=== PATIENT | female | born 1990 | race Caucasian/White ===

== ENCOUNTER 2017-01-24 12:44 | Inpatient (IN) | payer MEDICARE ==
[~2017-01-24] VITALS: Ht 162.6 cm; Wt 84.5 kg
[~2017-01-24 12:44] MED LIST: ANAPROX DS550 MG PO; ATIVAN1 MG PO; AUGMENTIN 875 M1 TAB PO; BACTRIM DS 8001 TA1 PO; CARAFATE1 G1 PO; CITALOPRAM20 MG PO; COMPAZINE10 MG PO; MEDROL DOSEPAK4 MG PO; MOTRIN800 MG PO; NO DAILY MEDS; PRILOSEC20 MG PO; RONDEC DM 480480 ML PO; SUNMARK OMEPRAZ20 M1 PO; TRAMADOL HCL50 MG PO; ULTRAM50 MG PO; VICODIN 500 MG-1 TAB PO; ZANTAC 150150 MG PO; ZOFRAN ODT4 MG SL; ZOFRAN4 MG PO; Zofran4 MG PO
[2017-01-24 12:55] VITALS: BP 139/90
[2017-01-24] MEDS ORDERED: HYDROXYZINE PAM25 M1 PO (12:56)
[2017-01-24] MEDS ORDERED: VENLAFAXINE HYD75 M3 PO (12:56)
[2017-01-24 13:29] LABS: HEMATOCRIT 45.9 % (37.0-47.0); HEMOGLOBIN 15.6 g/dl (12.0-16.0); MEAN CORPUSCULAR HGB 31.3 pg (27.0-31.0); MEAN PLATELET VOLUME 8.9 fl (9.6-12.3); PLATELET COUNT AUTOMATED 355 10*3/uL (130-400); RED BLOOD COUNT 4.99 10*6/uL (4.10-5.10); RED CELL DISTRI WIDTH 12.9 % (0-14.5); WHITE BLOOD COUNT 31.1 10*3/uL (4.8-10.8)
[2017-01-24 13:44] LABS: ALBUMIN 4.1 gm/dl (3.1-4.5); ALKALINE PHOSPHATASE 96 U/L (45-117); BILIRUBIN, TOTAL 0.2 mg/dl (0.2-1.0); BUN 11 mg/dl (7-24); CARBON DIOXIDE 24 mmol/L (21-32); CHLORIDE 111 mmol/L (98-107); EST GLOM FILT AFRICAN AMERICAN > 60 ml/min; GLUCOSE 138 mg/dL (65-99); POTASSIUM 3.7 mmol/L (3.5-5.1); SGOT/AST 20 IU/L (3-35); SGPT/ALT 21 U/L (12-78); SODIUM 144 mmol/L (136-145); TOTAL PROTEIN 7.7 gm/dL (6.4-8.2)
[2017-01-24 13:46] LABS: LYMPHOCYTE # 1.9 10*3/uL (1.3-4.4); MONOCYTE # 1.2 10*3/uL (0.1-1.0); NEUTROPHILS 90 % (47-73); TOTAL CELLS COUNTED 100 #CELLS
[2017-01-24 13:47] LABS: PLATELET SUFFICIENCY NORMAL (NORMAL)
[2017-01-24 14:18] VITALS: BP 118/73
[2017-01-24 15:10] LABS: BILIRUBIN NEGATIVE (NEGATIVE); BLOOD NEGATIVE (NEGATIVE); CLARITY CLEAR (CLEAR); COLOR YELLOW (YELLOW); GLUCOSE NEGATIVE (NEGATIVE); KETONE TRACE (NEGATIVE); LEUKO ESTERASE NEGATIVE (NEGATIVE); NITRITE NEGATIVE (NEGATIVE); PH 8.5 (5.0-9.0); PROTEIN 1+ (NEGATIVE); UROBILINOGEN 0.2 E.U./dl (0.2-1.0)
[2017-01-24 15:17] LABS: BACTERIA TRACE; URINE REFLEX COMMENT NO (NO); WBC 0-2 wbc/hpf (0-5)
[2017-01-24 15:19] LABS: URINE AMPHETAMINES < 1000 (1000ng/ml); URINE BARBITURATES < 200 (200ng/ml); URINE COCAINE < 300 (300ng/ml)
[2017-01-24 16:21] LABS: LA>2 REFLEX 2 HR DRAW NOW
[2017-01-24 16:36] LABS: LA>2 RFLX FOLLOW UP AT 2 HRS 2.7 mmol/L (0.4-2.0)
[2017-01-24 16:45] VITALS: BP 147/76
[2017-01-24 18:31] LABS: LA>2 REFLEX 4 HR DRAW NOW
[2017-01-24 20:00] VITALS: BP 125/84
[2017-01-25] VITALS: BP 141/80; BP 153/79
[2017-01-25 06:12] LABS: BASO % 0.1 % (0.0-1.0); IG # 0.1 10*3/uL (0.0-0.1); LYMPH # 2.9 10*3/uL (1.3-4.4); LYMPH % 13.7 % (27.0-41.0); MEAN CELL VOLUME 92.5 fl (81.0-99.0); MEAN CORPUSCULAR HGB 31.3 pg (27.0-31.0); MEAN CORPUSCULAR HGB CONC 33.8 g/dl (33.0-37.0); MEAN PLATELET VOLUME 9.3 fl (9.6-12.3); MONO % 4.8 % (3.0-9.0); NEUT # 17.3 10*3/uL (2.3-7.9); NEUT % 80.9 % (47.0-73.0); PLATELET COUNT AUTOMATED 307 10*3/uL (130-400); RED BLOOD COUNT 4.28 10*6/uL (4.10-5.10); RED CELL DISTRI WIDTH 13.2 % (0-14.5); WHITE BLOOD COUNT 21.4 10*3/uL (4.8-10.8)
[2017-01-25 06:14] LABS: HEMATOCRIT 39.6 % (37.0-47.0); HEMOGLOBIN 13.4 g/dl (12.0-16.0)
[2017-01-25 06:27] LABS: HEMOGLOBIN A1c 5.3 % (4.8-5.6)
[2017-01-25 06:40] LABS: BUN 7 mg/dl (7-24); CARBON DIOXIDE 24 mmol/L (21-32); CHLORIDE 109 mmol/L (98-107); CHOLESTEROL 98 mg/dL (<200); EST GLOM FILT AFRICAN AMERICAN > 60 ml/min; FREE T4 0.94 ng/dl (0.76-1.46); GLUCOSE 104 mg/dL (65-99); HDL CHOLESTEROL 60 mg/dl (40-60); LDL CHOLESTEROL 26 mg/dL (9-159); MAGNESIUM 1.7 mg/dL (1.5-2.1); PHOSPHOROUS 2.3 mg/dL (2.5-4.9); POTASSIUM 3.3 mmol/L (3.5-5.1); SODIUM 141 mmol/L (136-145); TRIGLYCERIDES 58 mg/dl (<150); VLDL CHOLESTEROL 12 mg/dL (6-40)
[2017-01-25 06:47] LABS: THYROID STIM HORMONE (HS) 0.858 uIU/ml (0.358-4.75)
[2017-01-25 06:52] LABS: FOLIC ACID 15.7 ng/mL (>5.38); VITAMIN D, 25-HYDROXY 34.7 ng/mL (30-100)
[2017-01-25 08:00] VITALS: BP 126/61
== END 2017-01-25 14:15 | disposition home or self-care (01) | DRG 391 ==
LOC: ED 12:44 → EDHOLD 15:51 → 5E 15:51
PROVIDERS: Internal Medicine; Nurse Practitioner Family
DX: K29.20 Alcoholic gastritis without bleeding (principal); R65.11 Systemic inflammatory response syndrome (SIRS) of non-infectious origin with acute organ dysfunction; F32.9 Major depressive disorder, single episode, unspecified; F17.200 Nicotine dependence, unspecified, uncomplicated; F41.9 Anxiety disorder, unspecified; F12.90 Cannabis use, unspecified, uncomplicated; Z71.6 Tobacco abuse counseling; Z82.69 Family history of other diseases of the musculoskeletal system and connective tissue; Z83.49 Family history of other endocrine, nutritional and metabolic diseases; Z79.899 Other long term (current) drug therapy

== ENCOUNTER 2017-04-12 13:25 | Emergency (ER) | payer MEDICARE ==
[~2017-04-12] VITALS: Wt 68.0 kg
[~2017-04-12 13:25] MED LIST changes: +HYDROXYZINE PAM25 M1 PO; +VENLAFAXINE HYD75 M3 PO
[2017-04-12 14:09] LABS: BASO % 0.2 % (0.0-1.0); EOS % 0.1 % (1.0-4.0); HEMATOCRIT 44.5 % (37.0-47.0); HEMOGLOBIN 15.3 g/dl (12.0-16.0); LYMPH # 2.2 10*3/uL (1.3-4.4); LYMPH % 14.8 % (27.0-41.0); MEAN CELL VOLUME 90.8 fl (81.0-99.0); MEAN CORPUSCULAR HGB 31.2 pg (27.0-31.0); MEAN CORPUSCULAR HGB CONC 34.4 g/dl (33.0-37.0); MEAN PLATELET VOLUME 8.5 fl (9.6-12.3); MONO # 0.3 10*3/uL (0.1-1.0); MONO % 2.2 % (3.0-9.0); NEUT # 12.2 10*3/uL (2.3-7.9); NEUT % 82.4 % (47.0-73.0); PLATELET COUNT AUTOMATED 358 10*3/uL (130-400); RED CELL DISTRI WIDTH 12.8 % (0-14.5); WHITE BLOOD COUNT 14.8 10*3/uL (4.8-10.8)
[2017-04-12 14:17] LABS: ACT PARTIAL THROMBO TIME 21.1 SECONDS (20.8-31.5)
[2017-04-12 14:25] LABS: ALBUMIN 3.9 gm/dl (3.1-4.5); ALKALINE PHOSPHATASE 87 U/L (45-117); BUN 8 mg/dl (7-24); CHLORIDE 110 mmol/L (98-107); LIPASE 115 U/L (73-393); MAGNESIUM 2.2 mg/dL (1.5-2.1); POTASSIUM 3.8 mmol/L (3.5-5.1); SGOT/AST 16 IU/L (3-35); SGPT/ALT 18 U/L (12-78); SODIUM 139 mmol/L (136-145); TOTAL PROTEIN 7.6 gm/dL (6.4-8.2)
[2017-04-12 15:38] VITALS: BP 125/85
[2017-04-12 15:46] LABS: BILIRUBIN NEGATIVE (NEGATIVE); BLOOD 3+ (NEGATIVE); CLARITY SL CLOUDY (CLEAR); COLOR YELLOW (YELLOW); GLUCOSE NEGATIVE (NEGATIVE); KETONE 3+ (NEGATIVE); LEUKO ESTERASE NEGATIVE (NEGATIVE); NITRITE NEGATIVE (NEGATIVE); UROBILINOGEN 0.2 E.U./dl (0.2-1.0)
[2017-04-12 15:53] LABS: BACTERIA 1+; URINE AMPHETAMINES < 1000 (1000ng/ml); URINE BARBITURATES < 200 (200ng/ml); URINE BENZODIAZEPINES < 200 (200ng/ml); URINE CANNABINOIDS (THC) > 50 (50ng/ml); URINE COCAINE < 300 (300ng/ml); URINE METHADONE < 300 (300ng/ml); URINE OPIATES < 300 (300ng/ml)
[2017-04-12 15:55] LABS: RBC 16-20 rbc/hpf (0-2); WBC 0-2 wbc/hpf (0-5)
[2017-04-12 16:01] LABS: URINE PHENCYCLIDINE < 25 (25ng/ml)
[2017-04-12] MEDS ORDERED: Motrin,Rufen800 MG PO (16:42)
[2017-04-12] MEDS ORDERED: ZOFRAN ODT4 MG SL (16:42)
== END 2017-04-12 18:40 | disposition home or self-care (01) ==
LOC: ED 13:25
PROVIDERS: Emergency Medicine
DX: R11.2 Nausea with vomiting, unspecified (principal); R51 Headache; F17.200 Nicotine dependence, unspecified, uncomplicated; F12.10 Cannabis abuse, uncomplicated; Z79.899 Other long term (current) drug therapy

== ENCOUNTER 2017-06-23 09:49 | Inpatient (IN) | payer MEDICARE ==
[~2017-06-23] VITALS: Ht 165.1 cm; Wt 79.9 kg
[~2017-06-23 09:49] MED LIST changes: +Motrin,Rufen800 MG PO
[2017-06-23 09:56] VITALS: BP 134/80
[2017-06-23 10:17] LABS: BILIRUBIN NEGATIVE (NEGATIVE); BLOOD NEGATIVE (NEGATIVE); CLARITY SL CLOUDY (CLEAR); COLOR YELLOW (YELLOW); GLUCOSE NEGATIVE (NEGATIVE); KETONE 1+ (NEGATIVE); LEUKO ESTERASE NEGATIVE (NEGATIVE); NITRITE NEGATIVE (NEGATIVE); SPECIFIC GRAVITY 1.015 (1.005-1.030); UROBILINOGEN 0.2 E.U./dl (0.2-1.0)
[2017-06-23 10:20] LABS: BASO % 0.2 % (0.0-1.0); EOS % 0.1 % (1.0-4.0); HEMATOCRIT 42.5 % (37.0-47.0); HEMOGLOBIN 14.6 g/dl (12.0-16.0); LYMPH # 2.3 10*3/uL (1.3-4.4); LYMPH % 10.2 % (27.0-41.0); MEAN CORPUSCULAR HGB 31.6 pg (27.0-31.0); MEAN CORPUSCULAR HGB CONC 34.4 g/dl (33.0-37.0); MEAN PLATELET VOLUME 8.9 fl (9.6-12.3); MONO # 0.7 10*3/uL (0.1-1.0); MONO % 3.2 % (3.0-9.0); NEUT # 18.9 10*3/uL (2.3-7.9); NEUT % 85.8 % (47.0-73.0); PLATELET COUNT AUTOMATED 340 10*3/uL (130-400); RED BLOOD COUNT 4.62 10*6/uL (4.10-5.10); RED CELL DISTRI WIDTH 12.8 % (0-14.5); WHITE BLOOD COUNT 22.1 10*3/uL (4.8-10.8)
--- NOTE | 2017-06-23 10:30 | NUR ---
PATIENT IV FLUIDS HAVE BEEN ADJUSTED TO 999ML/HR PER VERBAL ORDER OF [facility].
[2017-06-23 10:32] LABS: BACTERIA TRACE; WBC 0-2 wbc/hpf (0-5)
[2017-06-23 10:34] LABS: ALBUMIN 4.1 gm/dl (3.1-4.5); ALKALINE PHOSPHATASE 89 U/L (45-117); BUN 10 mg/dl (7-24); CHLORIDE 107 mmol/L (98-107); CREATININE 0.76 mg/dL (0.55-1.02); LIPASE 98 U/L (73-393); SGOT/AST 12 IU/L (3-35); SGPT/ALT 18 U/L (12-78); SODIUM 139 mmol/L (136-145); TOTAL PROTEIN 7.4 gm/dL (6.4-8.2)
--- NOTE | 2017-06-23 10:45 | NUR ---
PT LAYING IN BED RESTING AT THIS TIME. PT STATES THAT PAIN AND NAUSEA MEDICATIONS WERE EFFECTIVE. WILL CONTINUE TO MONITOR.
[2017-06-23 11:09] LABS: URINE AMPHETAMINES < 1000 (1000ng/ml); URINE BARBITURATES < 200 (200ng/ml); URINE BENZODIAZEPINES < 200 (200ng/ml); URINE CANNABINOIDS (THC) > 50 (50ng/ml); URINE COCAINE < 300 (300ng/ml); URINE METHADONE < 300 (300ng/ml); URINE OPIATES < 300 (300ng/ml)
--- NOTE | 2017-06-23 11:16 | NUR ---
PATIENT REPORT FROM [facility] AT THIS TIME.
[2017-06-23 11:17] LABS: URINE PHENCYCLIDINE < 25 (25ng/ml)
--- NOTE | 2017-06-23 11:18 | NUR ---
PATIENT TEARFUL AND AMBULATING TO RESTROOM AT THIS TIME.
--- NOTE | 2017-06-23 12:10 | NUR ---
PATIENT FIANCE IN ROOM WITH PATIENT.
--- NOTE | 2017-06-23 12:19 | NUR ---
REPORT CALLED TO [facility] AT THIS TIME. PATIENT TO BE TRANSPORTED BY STEFFANY ARORA TO 5TH FLOOR.
[2017-06-23 12:29] VITALS: BP 114/60
[2017-06-23 12:30] VITALS: BP 114/60
--- NOTE | 2017-06-23 14:58 | NUR ---
ZOFRAN 4 MG GIVEN FOR C/O NAUSEA WELL REGULAR SCHEDULED MED.
--- NOTE | 2017-06-23 15:23 | NUR ---
PT SCREAMING OUT AND MOANING C/O NAUSEA. ENCOURAGEMENT PROVIDED, MORPHINE 2 MG GIVEN FOR ABD PAIN. 05/02.
[2017-06-23 16:00] VITALS: BP 141/77
[2017-06-23 20:00] VITALS: BP 141/90
[2017-06-23 20:25] VITALS: BP 116/70
--- NOTE | 2017-06-23 23:33 | NUR ---
PATIENT IS CRYING AND SCREAMING OUT IN PAIN. SHE WAS MEDICATED WITH PRN MORPHINE, ZOFRAN AND RESTORIL ORDERED FOR C/O STOMACH PAIN RATED A 10/10, NAUSEA AND INSOMNIA. SHE IS COOPERATIVE WITH HER ASSESSMENT. FLUIDS MAINTAINED PER ORDER, CALL LIGHT IS IN REACH.
[2017-06-24] VITALS: BP 126/76
--- NOTE | 2017-06-24 02:28 | NUR ---
PATIENT RESTING QUIETLY. NO SXS OF DISTRESS. FLUIDS MAINTAINED PER ORDER. CALL LIGHT IN REACH.
--- NOTE | 2017-06-24 04:12 | NUR ---
PATIENT SLEEPING, NO SXS OF DISTRESS. FLUIDS MAINTAINED PER ORDER. CALL LIGHT IN REACH.
--- NOTE | 2017-06-24 05:29 | NUR ---
PATIENT MEDICATED WITH PRN MORPHINE AND ZOFRAN ORDERED FOR C/O ABDOMINAL PAIN RATED A 7/10 AND NAUSEA.
[2017-06-24 05:58] LABS: BASO % 0.1 % (0.0-1.0); HEMATOCRIT 41.1 % (37.0-47.0); MEAN CELL VOLUME 91.1 fl (81.0-99.0); MEAN CORPUSCULAR HGB CONC 34.1 g/dl (33.0-37.0); MEAN PLATELET VOLUME 9.3 fl (9.6-12.3); MONO % 4.9 % (3.0-9.0); NEUT # 17.3 10*3/uL (2.3-7.9); NEUT % 80.6 % (47.0-73.0); PLATELET COUNT AUTOMATED 343 10*3/uL (130-400); RED BLOOD COUNT 4.51 10*6/uL (4.10-5.10); RED CELL DISTRI WIDTH 12.7 % (0-14.5); WHITE BLOOD COUNT 21.4 10*3/uL (4.8-10.8)
[2017-06-24 06:26] LABS: BUN 7 mg/dl (7-24); CHLORIDE 103 mmol/L (98-107); CHOLESTEROL 149 mg/dL (<200); CREATININE 0.58 mg/dL (0.55-1.02); PHOSPHOROUS 2.7 mg/dL (2.5-4.9); POTASSIUM 3.7 mmol/L (3.5-5.1); SODIUM 137 mmol/L (136-145); TRIGLYCERIDES 72 mg/dl (<150); VLDL CHOLESTEROL 14 mg/dL (6-40)
--- NOTE | 2017-06-24 06:30 | NUR ---
PATIENT STATES EARLIER PRN MEDICATIONS WERE EFFECTIVE.
[2017-06-24 06:35] LABS: HDL CHOLESTEROL 57 mg/dl (40-60); LDL CHOLESTEROL 78 mg/dL (9-159); THYROID STIM HORMONE (HS) 0.834 uIU/ml (0.358-4.75)
[2017-06-24 08:00] VITALS: BP 113/61
[2017-06-24 08:04] LABS: VITAMIN D, 25-HYDROXY 23.7 ng/mL (30-100)
--- NOTE | 2017-06-24 08:32 | NUR ---
IN BED RESTING QUIETLY. AWAKENS TO VOICE. DENIES ANY C/O. SEE ASSESS. WILL CONT TO MONITOR. CALL LIGHT IN REACH.
--- NOTE | 2017-06-24 12:50 | NUR ---
DISCHARGED AT THIS TIME. IV REMOVED AND PRESSURE DRESSING APPLIED. VERBALIZED UNDERSTANDING OF DISCHARGE INSTRUCTIONS.
== END 2017-06-24 12:50 | disposition home or self-care (01) | DRG 392 ==
LOC: ED 09:49 → EDHOLD 11:35 → 5E 11:52
PROVIDERS: Nurse Practitioner Family; Student in an Organized Health Care Education/Training Program; ADMIT Internal Medicine
DX: K52.9 Noninfective gastroenteritis and colitis, unspecified (principal); D72.829 Elevated white blood cell count, unspecified; R73.9 Hyperglycemia, unspecified; F12.10 Cannabis abuse, uncomplicated; R03.0 Elevated blood-pressure reading, without diagnosis of hypertension; F41.9 Anxiety disorder, unspecified; F32.9 Major depressive disorder, single episode, unspecified; F17.210 Nicotine dependence, cigarettes, uncomplicated; Z71.6 Tobacco abuse counseling; Z79.899 Other long term (current) drug therapy; Z84.89 Family history of other specified conditions

== ENCOUNTER 2017-08-13 11:30 | Emergency (ER) | payer MEDICARE ==
[~2017-08-13] VITALS: Wt 56.7 kg
[2017-08-13 11:34] VITALS: BP 140/90
[2017-08-13] MEDS ORDERED: NAPROSYN500 MG PO (11:41)
== END 2017-08-13 12:32 | disposition home or self-care (01) ==
LOC: ED 11:30
DX: S50.01XA Contusion of right elbow, initial encounter (principal); R03.0 Elevated blood-pressure reading, without diagnosis of hypertension; F17.200 Nicotine dependence, unspecified, uncomplicated; F12.10 Cannabis abuse, uncomplicated; W00.0XXA Fall on same level due to ice and snow, initial encounter; Y93.89 Activity, other specified; Y92.89 Other specified places as the place of occurrence of the external cause; Y99.9 Unspecified external cause status

== ENCOUNTER 2018-04-11 07:20 | Emergency (ER) | payer MEDICARE ==
[~2018-04-11] VITALS: Ht 160 cm; Wt 77.1 kg
[~2018-04-11 07:20] MED LIST changes: +NAPROSYN500 MG PO; +PROVENTIL HFA6.7 GM DEVI; +ZITHROMAX250 MG PO
[2018-04-11] MEDS ORDERED: BUSPAR5 MG PO (07:24)
[2018-04-11] MEDS ORDERED: VENLAFAXINE75 M1 PO (07:26)
[2018-04-11 08:00] LABS: HEMOGLOBIN 13.5 g/dl (12.0-16.0); MEAN CELL VOLUME 94.6 fl (81.0-99.0); MEAN CORPUSCULAR HGB 31.9 pg (27.0-31.0); MEAN CORPUSCULAR HGB CONC 33.8 g/dl (33.0-37.0); MEAN PLATELET VOLUME 8.8 fl (9.6-12.3); PLATELET COUNT AUTOMATED 344 10*3/uL (130-400); RED BLOOD COUNT 4.23 10*6/uL (4.10-5.10); RED CELL DISTRI WIDTH 13.5 % (0-14.5); WHITE BLOOD COUNT 15.9 10*3/uL (4.8-10.8)
[2018-04-11 08:10] LABS: ACT PARTIAL THROMBO TIME 20.8 SECONDS (19.5-32.1); INTERNATIONAL NORM RATIO 0.9 (2.0-3.5)
[2018-04-11 08:18] LABS: ALBUMIN 4.2 gm/dl (3.1-4.5); ALKALINE PHOSPHATASE 80 U/L (45-117); BUN 10 mg/dl (7-24); CHLORIDE 108 mmol/L (98-107); CREATININE 0.67 mg/dL (0.55-1.02); LIPASE 72 U/L (73-393); POTASSIUM 3.7 mmol/L (3.5-5.1); SGOT/AST 12 IU/L (3-35); SGPT/ALT 20 U/L (12-78); SODIUM 142 mmol/L (136-145); TOTAL PROTEIN 7.6 gm/dL (6.4-8.2)
[2018-04-11 08:19] LABS: B-hCG (QUALITATIVE) NEGATIVE (NEGATIVE)
[2018-04-11 08:20] LABS: ETHYL ALCOHOL < 3.0 mg/dl (<3); TROPONIN I < 0.015 ng/ml (<0.045)
[2018-04-11 08:28] LABS: BASOPHILS 1 % (0-1); PLATELET SUFFICIENCY NORMAL (NORMAL); TOTAL CELLS COUNTED 100 #CELLS
[2018-04-11 11:27] VITALS: BP 118/70
[2018-04-11 11:31] LABS: BILIRUBIN NEGATIVE (NEGATIVE); BLOOD NEGATIVE (NEGATIVE); CLARITY SL CLOUDY (CLEAR); COLOR YELLOW (YELLOW); GLUCOSE NEGATIVE (NEGATIVE); KETONE 1+ (NEGATIVE); LEUKO ESTERASE NEGATIVE (NEGATIVE); NITRITE NEGATIVE (NEGATIVE); PH 8.5 (5.0-9.0); UROBILINOGEN 0.2 E.U./dl (0.2-1.0)
[2018-04-11 11:46] LABS: URINE AMPHETAMINES < 1000 (1000ng/ml); URINE BARBITURATES < 200 (200ng/ml); URINE BENZODIAZEPINES < 200 (200ng/ml); URINE CANNABINOIDS (THC) > 50 (50ng/ml); URINE COCAINE < 300 (300ng/ml); URINE METHADONE < 300 (300ng/ml); URINE OPIATES < 300 (300ng/ml)
[2018-04-11 11:55] LABS: BACTERIA TRACE
[2018-04-11 11:56] LABS: URINE PHENCYCLIDINE < 25 (25ng/ml)
[2018-04-11] MEDS ORDERED: ZOFRAN4 MG PO (13:19)
[2018-07-09] MEDS ORDERED: ZOFRAN4 MG PO (19:56)
== END 2018-04-11 13:30 | disposition home or self-care (01) ==
LOC: ED 07:20
PROVIDERS: Internal Medicine
DX: K52.9 Noninfective gastroenteritis and colitis, unspecified (principal); R10.84 Generalized abdominal pain; F17.200 Nicotine dependence, unspecified, uncomplicated; Z79.2 Long term (current) use of antibiotics; Z79.899 Other long term (current) drug therapy

== ENCOUNTER 2018-11-04 02:09 | Emergency (ER) | payer MEDICARE ==
[~2018-11-04] VITALS: Ht 162.5 cm; Wt 77.1 kg
[~2018-11-04 02:09] MED LIST changes: +BUSPAR5 MG PO; +VENLAFAXINE75 M1 PO
[2018-11-04 02:10] VITALS: BP 130/83
== END 2018-11-04 04:32 | disposition home or self-care (01) ==
LOC: ED 02:09
DX: S16.1XXA Strain of muscle, fascia and tendon at neck level, initial encounter (principal); S09.90XA Unspecified injury of head, initial encounter; F17.210 Nicotine dependence, cigarettes, uncomplicated; F12.90 Cannabis use, unspecified, uncomplicated; Z79.899 Other long term (current) drug therapy; Y04.0XXA Assault by unarmed brawl or fight, initial encounter; Y93.89 Activity, other specified; Y92.89 Other specified places as the place of occurrence of the external cause; Y99.9 Unspecified external cause status

== ENCOUNTER 2018-12-11 20:13 | Emergency (ER) | payer MEDICARE ==
[~2018-12-11] VITALS: Ht 160 cm; Wt 77.1 kg
[2018-12-11 20:15] VITALS: BP 143/89
== END 2018-12-11 21:34 | disposition home or self-care (01) ==
LOC: ED 20:13
DX: G43.909 Migraine, unspecified, not intractable, without status migrainosus (principal); F17.200 Nicotine dependence, unspecified, uncomplicated; Z79.2 Long term (current) use of antibiotics; Z79.899 Other long term (current) drug therapy

== ENCOUNTER 2019-06-15 15:58 | Emergency (ER) | payer MEDICARE ==
[~2019-06-15] VITALS: Ht 160 cm; Wt 77.1 kg
[2019-06-15 16:00] VITALS: BP 154/91
[2019-06-15 16:24] LABS: BASO % 0.1 % (0.0-1.0); EOS % 0.1 % (1.0-4.0); HEMATOCRIT 41.9 % (37.0-47.0); LYMPH # 2.1 10*3/uL (1.3-4.4); LYMPH % 13.4 % (27.0-41.0); MEAN CORPUSCULAR HGB 31.7 pg (27.0-31.0); MEAN CORPUSCULAR HGB CONC 33.4 g/dl (33.0-37.0); MEAN PLATELET VOLUME 8.5 fl (9.6-12.3); MONO # 0.6 10*3/uL (0.1-1.0); MONO % 3.8 % (3.0-9.0); NEUT # 12.8 10*3/uL (2.3-7.9); NEUT % 82.2 % (47.0-73.0); PLATELET COUNT AUTOMATED 391 10*3/uL (130-400); RED BLOOD COUNT 4.41 10*6/uL (4.10-5.10); RED CELL DISTRI WIDTH 12.7 % (0-14.5); WHITE BLOOD COUNT 15.6 10*3/uL (4.8-10.8)
[2019-06-15 16:42] LABS: ALBUMIN 3.6 gm/dl (3.1-4.5); ALKALINE PHOSPHATASE 77 U/L (45-117); BUN 5 mg/dl (7-24); CHLORIDE 111 mmol/L (98-107); CREATININE 0.64 mg/dL (0.55-1.02); POTASSIUM 3.7 mmol/L (3.5-5.1); SGOT/AST 15 IU/L (3-35); SGPT/ALT 27 U/L (12-78); SODIUM 140 mmol/L (136-145)
[2019-06-15 16:48] LABS: BILIRUBIN NEGATIVE (NEGATIVE); BLOOD NEGATIVE (NEGATIVE); CLARITY CLOUDY (CLEAR); COLOR YELLOW (YELLOW); GLUCOSE NEGATIVE (NEGATIVE); KETONE NEGATIVE (NEGATIVE); LEUKO ESTERASE NEGATIVE (NEGATIVE); NITRITE NEGATIVE (NEGATIVE); PH 8.5 (5.0-9.0); SPECIFIC GRAVITY 1.015 (1.005-1.030); UROBILINOGEN 0.2 E.U./dl (0.2-1.0)
[2019-06-15 16:50] LABS: BETA-HCG, QUANT < 1.0 mIU/mL (1-3)
[2019-06-15 16:57] LABS: EPITHELIAL CELLS 21-30; WBC 0-2 wbc/hpf (0-5)
[2019-06-15 17:06] LABS: URINE AMPHETAMINES < 1000 (1000ng/ml); URINE BARBITURATES < 200 (200ng/ml); URINE BENZODIAZEPINES < 200 (200ng/ml); URINE CANNABINOIDS (THC) > 50 (50ng/ml); URINE COCAINE < 300 (300ng/ml); URINE METHADONE < 300 (300ng/ml); URINE OPIATES < 300 (300ng/ml)
[2019-06-15 17:09] LABS: URINE PHENCYCLIDINE < 25 (25ng/ml)
[2019-06-15] MEDS ORDERED: AUGMENTIN 875-875 MG PO (19:16)
== END 2019-06-15 19:33 | disposition home or self-care (01) ==
LOC: ED 15:58
PROVIDERS: Nurse Practitioner Family
DX: K52.9 Noninfective gastroenteritis and colitis, unspecified (principal); K59.00 Constipation, unspecified; R11.2 Nausea with vomiting, unspecified; R79.1 Abnormal coagulation profile; G43.909 Migraine, unspecified, not intractable, without status migrainosus; F17.200 Nicotine dependence, unspecified, uncomplicated; Z79.899 Other long term (current) drug therapy; Z87.442 Personal history of urinary calculi

== ENCOUNTER 2020-09-18 07:47 | Emergency (ER) | payer MEDICARE ==
[~2020-09-18] VITALS: Ht 160 cm; Wt 81.6 kg
[~2020-09-18 07:47] MED LIST changes: +AUGMENTIN 875-875 MG PO
[2020-09-18 07:54] VITALS: BP 145/90
[2020-09-18 08:33] LABS: HEMATOCRIT 42.9 % (37.0-47.0); MEAN CELL VOLUME 90.1 fl (81.0-99.0); MEAN CORPUSCULAR HGB 30.5 pg (27.0-31.0); MEAN CORPUSCULAR HGB CONC 33.8 g/dl (33.0-37.0); MEAN PLATELET VOLUME 8.8 fl (9.6-12.3); PLATELET COUNT AUTOMATED 435 10*3/uL (130-400); RED BLOOD COUNT 4.76 10*6/uL (4.10-5.10); RED CELL DISTRI WIDTH 12.6 % (0-14.5); WHITE BLOOD COUNT 28.1 10*3/uL (4.8-10.8)
[2020-09-18 08:34] LABS: BILIRUBIN Negative (Negative); BLOOD 1+ (Negative); CLARITY Cloudy (Clear); COLOR Yellow (Yellow); GLUCOSE Negative (Negative); KETONE 3+ (Negative); LEUKO ESTERASE Negative (Negative); NITRITE Negative (Negative); SPECIFIC GRAVITY >= 1.030 (1.001-1.030)
[2020-09-18 08:47] LABS: ALBUMIN 3.9 gm/dl (3.1-4.5); ALKALINE PHOSPHATASE 114 U/L (45-117); BUN 9 mg/dl (7-24); CHLORIDE 109 mmol/L (98-107); CREATININE 0.69 mg/dL (0.55-1.02); LIPASE 42 U/L (73-393); POTASSIUM 3.6 mmol/L (3.5-5.1); SGOT/AST 8 IU/L (3-35); SGPT/ALT 24 U/L (12-78); SODIUM 138 mmol/L (136-145); TOTAL PROTEIN 8.1 gm/dL (6.4-8.2)
[2020-09-18 08:50] LABS: PLATELET SUFFICIENCY HIGH (NORMAL); TOTAL CELLS COUNTED 100 #CELLS
[2020-09-18 08:51] LABS: MUCOUS 3+
[2020-09-18] MEDS ORDERED: SEPTDS PO (11:35)
[2020-09-18] MEDS ORDERED: ZOFRAN4 MG PO (11:35)
== END 2020-09-18 11:40 | disposition home or self-care (01) ==
LOC: ED 07:47
PROVIDERS: Internal Medicine
DX: N39.0 Urinary tract infection, site not specified (principal); F41.9 Anxiety disorder, unspecified; F32.9 Major depressive disorder, single episode, unspecified; G43.909 Migraine, unspecified, not intractable, without status migrainosus; Z79.899 Other long term (current) drug therapy

== ENCOUNTER 2020-10-25 17:54 | Emergency (ER) | payer MEDICARE ==
[~2020-10-25] VITALS: Wt 81.6 kg
[~2020-10-25 17:54] MED LIST changes: +SEPTDS PO
[2020-10-25 17:59] VITALS: BP 150/35
[2020-10-25 18:37] LABS: HEMATOCRIT 42.5 % (37.0-47.0); MEAN CELL VOLUME 90.2 fl (81.0-99.0); MEAN CORPUSCULAR HGB 30.8 pg (27.0-31.0); MEAN CORPUSCULAR HGB CONC 34.1 g/dl (33.0-37.0); MEAN PLATELET VOLUME 8.6 fl (9.6-12.3); PLATELET COUNT AUTOMATED 406 10*3/uL (130-400); RED BLOOD COUNT 4.71 10*6/uL (4.10-5.10); RED CELL DISTRI WIDTH 12.6 % (0-14.5); WHITE BLOOD COUNT 23.4 10*3/uL (4.8-10.8)
[2020-10-25 18:53] LABS: ALBUMIN 3.8 gm/dl (3.1-4.5); ALKALINE PHOSPHATASE 107 U/L (45-117); BUN 10 mg/dl (7-24); CHLORIDE 108 mmol/L (98-107); CREATININE 0.68 mg/dL (0.55-1.02); POTASSIUM 3.8 mmol/L (3.5-5.1); SGOT/AST 12 IU/L (3-35); SGPT/ALT 17 U/L (12-78); SODIUM 137 mmol/L (136-145); TOTAL PROTEIN 7.4 gm/dL (6.4-8.2)
[2020-10-25 18:58] LABS: BETA-HCG, QUANT < 1.0 mIU/mL (1-3)
[2020-10-25 19:03] LABS: TOTAL CELLS COUNTED 100 #CELLS
[2020-10-25 19:04] LABS: PLATELET SUFFICIENCY HIGH (NORMAL)
[2020-10-25 19:45] LABS: BILIRUBIN Negative (Negative); BLOOD Negative (Negative); CLARITY Turbid (Clear); COLOR Yellow (Yellow); GLUCOSE Negative (Negative); KETONE 3+ (Negative); LEUKO ESTERASE Negative (Negative); NITRITE Negative (Negative); PH 7.5 (4.5-8.0); SPECIFIC GRAVITY 1.025 (1.001-1.030)
[2020-10-25 19:56] LABS: BACTERIA 2+; WBC 0-2 wbc/hpf (0-5)
[2020-10-25 20:03] LABS: URINE AMPHETAMINES < 1000 (1000ng/ml); URINE BARBITURATES < 200 (200ng/ml); URINE BENZODIAZEPINES < 200 (200ng/ml); URINE CANNABINOIDS (THC) > 50 (50ng/ml); URINE COCAINE < 300 (300ng/ml); URINE METHADONE < 300 (300ng/ml); URINE OPIATES < 300 (300ng/ml)
[2020-10-25 20:07] LABS: URINE PHENCYCLIDINE < 25 (25ng/ml)
[2020-10-25] MEDS ORDERED: ZOFRAN4 MG PO (21:13)
== END 2020-10-25 21:25 | disposition home or self-care (01) ==
LOC: ED 17:54
PROVIDERS: Student in an Organized Health Care Education/Training Program
DX: R11.2 Nausea with vomiting, unspecified (principal); F12.920 Cannabis use, unspecified with intoxication, uncomplicated; R10.13 Epigastric pain; D72.829 Elevated white blood cell count, unspecified; F17.200 Nicotine dependence, unspecified, uncomplicated; Z79.2 Long term (current) use of antibiotics; Z79.899 Other long term (current) drug therapy

== ENCOUNTER 2020-12-09 17:55 | Emergency (ER) | payer MEDICARE ==
[~2020-12-09] VITALS: Ht 160 cm; Wt 77.1 kg
[2020-12-09 19:38] LABS: HEMATOCRIT 42.3 % (37.0-47.0); MEAN CELL VOLUME 89.8 fl (81.0-99.0); MEAN CORPUSCULAR HGB 30.4 pg (27.0-31.0); MEAN CORPUSCULAR HGB CONC 33.8 g/dl (33.0-37.0); MEAN PLATELET VOLUME 9.3 fl (9.6-12.3); PLATELET COUNT AUTOMATED 390 10*3/uL (130-400); RED BLOOD COUNT 4.71 10*6/uL (4.10-5.10); RED CELL DISTRI WIDTH 12.8 % (0-14.5); WHITE BLOOD COUNT 28.2 10*3/uL (4.8-10.8)
[2020-12-09 19:53] LABS: ALBUMIN 3.7 gm/dl (3.1-4.5); ALKALINE PHOSPHATASE 107 U/L (45-117); BUN 9 mg/dl (7-24); CHLORIDE 111 mmol/L (98-107); CREATININE 0.77 mg/dL (0.55-1.02); LIPASE 38 U/L (73-393); SGOT/AST 21 IU/L (3-35); SGPT/ALT 22 U/L (12-78); SODIUM 140 mmol/L (136-145); TOTAL PROTEIN 7.8 gm/dL (6.4-8.2)
[2020-12-09 19:55] LABS: B-hCG (QUALITATIVE) NEGATIVE (NEGATIVE)
[2020-12-09 20:02] LABS: PLATELET SUFFICIENCY NORMAL (NORMAL); TOTAL CELLS COUNTED 100 #CELLS
[2020-12-09 20:38] VITALS: BP 138/90
[2020-12-09 20:42] LABS: BILIRUBIN Negative (Negative); BLOOD 3+ (Negative); CLARITY Clear (Clear); COLOR Yellow (Yellow); GLUCOSE Negative (Negative); KETONE 3+ (Negative); LEUKO ESTERASE Negative (Negative); NITRITE Negative (Negative)
[2020-12-09 21:04] LABS: BACTERIA 1+; EPITHELIAL CELLS 16-20; MUCOUS 1+
[2020-12-09 21:05] LABS: PH 8.5 (4.5-8.0)
[2020-12-09 21:10] LABS: URINE AMPHETAMINES < 1000 (1000ng/ml); URINE BARBITURATES < 200 (200ng/ml); URINE BENZODIAZEPINES < 200 (200ng/ml); URINE CANNABINOIDS (THC) > 50 (50ng/ml); URINE COCAINE < 300 (300ng/ml); URINE METHADONE < 300 (300ng/ml); URINE OPIATES < 300 (300ng/ml)
[2020-12-09 21:11] LABS: URINE PHENCYCLIDINE < 25 (25ng/ml)
== END 2020-12-10 03:24 | disposition home or self-care (01) ==
LOC: ED 17:55
PROVIDERS: Physician Assistant
DX: K52.9 Noninfective gastroenteritis and colitis, unspecified (principal); F17.200 Nicotine dependence, unspecified, uncomplicated; Z79.899 Other long term (current) drug therapy

== ENCOUNTER 2021-01-22 20:32 | Emergency (ER) | payer MEDICARE ==
[~2021-01-22] VITALS: Ht 160 cm; Wt 81.6 kg
[2021-01-22 21:19] LABS: HEMATOCRIT 42.4 % (37.0-47.0); MEAN CELL VOLUME 90.6 fl (81.0-99.0); MEAN CORPUSCULAR HGB 30.8 pg (27.0-31.0); PLATELET COUNT AUTOMATED 429 10*3/uL (130-400); RED BLOOD COUNT 4.68 10*6/uL (4.10-5.10); RED CELL DISTRI WIDTH 12.5 % (0-14.5); WHITE BLOOD COUNT 29.4 10*3/uL (4.8-10.8)
[2021-01-22 21:35] LABS: ALBUMIN 3.9 gm/dl (3.1-4.5); ALKALINE PHOSPHATASE 110 U/L (45-117); BUN 7 mg/dl (7-24); CHLORIDE 109 mmol/L (98-107); CREATININE 0.66 mg/dL (0.55-1.02); LIPASE 41 U/L (73-393); POTASSIUM 3.5 mmol/L (3.5-5.1); SGOT/AST 12 IU/L (3-35); SGPT/ALT 26 U/L (12-78); SODIUM 137 mmol/L (136-145); TOTAL PROTEIN 7.9 gm/dL (6.4-8.2)
[2021-01-22 21:39] LABS: PLATELET SUFFICIENCY HIGH (NORMAL); TOTAL CELLS COUNTED 100 #CELLS
[2021-01-22 23:29] LABS: BILIRUBIN Negative (Negative); BLOOD Negative (Negative); CLARITY Cloudy (Clear); COLOR Yellow (Yellow); GLUCOSE Negative (Negative); KETONE 4+ (Negative); LEUKO ESTERASE Negative (Negative); NITRITE Negative (Negative); PH >= 9.0 (4.5-8.0)
[2021-01-22 23:35] LABS: BACTERIA 2+
[2021-01-22 23:37] VITALS: BP 166/92
== END 2021-01-23 | disposition left against medical advice (07) ==
LOC: ED 20:32
PROVIDERS: Physician Assistant
DX: M54.5 Low back pain (principal); R11.2 Nausea with vomiting, unspecified; R10.9 Unspecified abdominal pain; R35.0 Frequency of micturition; F17.200 Nicotine dependence, unspecified, uncomplicated; Z87.442 Personal history of urinary calculi; Z79.2 Long term (current) use of antibiotics; Z79.899 Other long term (current) drug therapy

== ENCOUNTER 2021-05-17 12:52 | Emergency (ER) | payer MEDICARE ==
[~2021-05-17] VITALS: Ht 160 cm; Wt 77.1 kg
[2021-05-17 16:28] LABS: HEMATOCRIT 43.3 % (37.0-47.0); MEAN CELL VOLUME 91.4 fl (81.0-99.0); MEAN CORPUSCULAR HGB 30.2 pg (27.0-31.0); MEAN PLATELET VOLUME 8.7 fl (9.6-12.3); PLATELET COUNT AUTOMATED 423 10*3/uL (130-400); RED BLOOD COUNT 4.74 10*6/uL (4.10-5.10); RED CELL DISTRI WIDTH 12.4 % (0-14.5); WHITE BLOOD COUNT 29.7 10*3/uL (4.8-10.8)
[2021-05-17 16:44] LABS: ALBUMIN 4.2 gm/dl (3.1-4.5); ALKALINE PHOSPHATASE 125 U/L (45-117); BUN 9 mg/dl (7-24); CHLORIDE 105 mmol/L (98-107); CREATININE 0.74 mg/dL (0.55-1.02); LIPASE 31 U/L (73-393); POTASSIUM 3.7 mmol/L (3.5-5.1); SGOT/AST 10 IU/L (3-35); SGPT/ALT 23 U/L (12-78); SODIUM 137 mmol/L (136-145); TOTAL PROTEIN 8.5 gm/dL (6.4-8.2)
[2021-05-17 16:55] LABS: ATYPICAL LYMPHS 1 % (0-0); BURR CELLS FEW; OVALOCYTES FEW; PLATELET SUFFICIENCY HIGH (NORMAL); TOTAL CELLS COUNTED 100 #CELLS
[2021-05-17 17:26] LABS: BILIRUBIN Negative (Negative); BLOOD 1+ (Negative); CLARITY Cloudy (Clear); COLOR Yellow (Yellow); GLUCOSE Negative (Negative); KETONE 4+ (Negative); LEUKO ESTERASE Negative (Negative); NITRITE Negative (Negative); SPECIFIC GRAVITY >= 1.030 (1.001-1.030)
[2021-05-17 17:34] LABS: BACTERIA 2+; EPITHELIAL CELLS TNTC; MUCOUS 4+
[2021-05-17 18:38] VITALS: BP 150/77
[2021-05-17] MEDS ORDERED: METHOCARBAMOL500 M1 PO (19:28)
[2021-05-17] MEDS ORDERED: IBUPROFEN600 MG PO (19:28)
== END 2021-05-17 20:00 | disposition home or self-care (01) ==
LOC: ED 12:52
PROVIDERS: Physician Assistant
DX: S23.9XXA Sprain of unspecified parts of thorax, initial encounter (principal); K52.9 Noninfective gastroenteritis and colitis, unspecified; F17.200 Nicotine dependence, unspecified, uncomplicated; Z79.899 Other long term (current) drug therapy; X58.XXXA Exposure to other specified factors, initial encounter; Y93.89 Activity, other specified; Y92.89 Other specified places as the place of occurrence of the external cause; Y99.8 Other external cause status

== ENCOUNTER 2022-02-24 13:20 | Emergency (ER) | payer MEDICARE, OTHER ==
[~2022-02-24] VITALS: Wt 77.1 kg
[~2022-02-24 13:20] MED LIST changes: +IBUPROFEN600 MG PO; +METHOCARBAMOL500 M1 PO
[2022-02-24 13:27] VITALS: BP 153/88
[2022-02-24 13:49] LABS: BILIRUBIN Negative (Negative); BLOOD Negative (Negative); CLARITY Turbid (Clear); COLOR Yellow (Yellow); GLUCOSE Negative (Negative); KETONE 2+ (Negative); LEUKO ESTERASE Negative (Negative); NITRITE Negative (Negative)
[2022-02-24 13:50] LABS: PH 7.5 (4.5-8.0)
[2022-02-24 13:57] LABS: MEAN CELL VOLUME 92.3 fl (81.0-99.0); MEAN CORPUSCULAR HGB CONC 33.6 g/dl (33.0-37.0); MEAN PLATELET VOLUME 8.9 fl (9.6-12.3); PLATELET COUNT AUTOMATED 372 10*3/uL (130-400); RED BLOOD COUNT 4.55 10*6/uL (4.10-5.10); RED CELL DISTRI WIDTH 12.6 % (0-14.5); WHITE BLOOD COUNT 22.1 10*3/uL (4.8-10.8)
[2022-02-24 14:00] LABS: MANUAL DIFF REFLEX YES
[2022-02-24 14:02] LABS: BACTERIA 1+; WBC 0-2 wbc/hpf (0-5)
[2022-02-24 14:14] LABS: BUN 8 mg/dl (7-24); CHLORIDE 109 mmol/L (98-107); LIPASE 86 U/L (73-393); POTASSIUM 3.6 mmol/L (3.5-5.1); SGOT/AST 19 IU/L (3-35); SGPT/ALT 20 U/L (12-78); SODIUM 141 mmol/L (136-145); TOTAL PROTEIN 7.4 gm/dL (6.4-8.2)
[2022-02-24 14:15] LABS: ALKALINE PHOSPHATASE 86 U/L (45-117)
[2022-02-24 14:18] LABS: TOTAL CELLS COUNTED 100 #CELLS; VACUOLATION OF NEUTROPHILS SLIGHT
[2022-02-24 14:19] LABS: BURR CELLS FEW; PLATELET SUFFICIENCY NORMAL (NORMAL)
[2022-02-24 14:31] LABS: URINE AMPHETAMINES < 1000 (1000ng/ml); URINE BARBITURATES < 200 (200ng/ml); URINE BENZODIAZEPINES < 200 (200ng/ml); URINE CANNABINOIDS (THC) > 50 (50ng/ml); URINE COCAINE < 300 (300ng/ml); URINE METHADONE < 300 (300ng/ml); URINE OPIATES < 300 (300ng/ml)
[2022-02-24 14:34] LABS: URINE PHENCYCLIDINE < 25 (25ng/ml)
[2022-02-24] MEDS ORDERED: DICYCLOMINE HYD10 MG PO (17:19)
== END 2022-02-24 17:24 | disposition home or self-care (01) ==
LOC: ED 13:20
PROVIDERS: Emergency Medicine; Physician Assistant
DX: R10.84 Generalized abdominal pain (principal)

== ENCOUNTER 2022-04-16 13:25 | Emergency (ER) | payer MEDICARE, OTHER ==
[~2022-04-16 13:25] MED LIST changes: +DICYCLOMINE HYD10 MG PO
[2022-04-16 13:36] VITALS: BP 135/75
[2022-04-16] MEDS ORDERED: PENICILLIN VK500 MG PO (13:53)
[2022-04-16] MEDS ORDERED: NAPROSYN500 MG PO (13:53)
== END 2022-04-16 13:59 | disposition home or self-care (01) ==
LOC: ED 13:25
DX: K04.7 Periapical abscess without sinus (principal); Z79.899 Other long term (current) drug therapy; Z87.891 Personal history of nicotine dependence

== ENCOUNTER 2022-09-20 09:41 | Emergency (ER) | payer MEDICARE, OTHER ==
[~2022-09-20] VITALS: Ht 160 cm; Wt 77.1 kg
[~2022-09-20 09:41] MED LIST changes: +PENICILLIN VK500 MG PO
[2022-09-20 09:47] VITALS: BP 165/86
[2022-09-20] MEDS ORDERED: AMOXICILLIN875 MG PO (11:14)
== END 2022-09-20 11:27 | disposition home or self-care (01) ==
LOC: ED 09:41
DX: K08.89 Other specified disorders of teeth and supporting structures (principal); F41.9 Anxiety disorder, unspecified; F32.A Depression, unspecified; Z87.442 Personal history of urinary calculi; G43.909 Migraine, unspecified, not intractable, without status migrainosus; F12.90 Cannabis use, unspecified, uncomplicated; F17.200 Nicotine dependence, unspecified, uncomplicated

== ENCOUNTER 2024-03-03 09:00 | Emergency (ER) | payer MEDICARE, OTHER ==
[~2024-03-03] VITALS: Ht 160 cm; Wt 74.8 kg
[~2024-03-03 09:00] MED LIST changes: +AMOXICILLIN875 MG PO
[2024-03-03 09:17] VITALS: BP 133/87
[2024-03-03] MEDS ORDERED: Doxycycline Hyclate 100 MG CAP PO ONE (10:00)
[2024-03-03] MEDS ORDERED: diphenhydrAMINE hydrochloride 25 MG CAP PO ONE (10:00)
[2024-03-03] MEDS ORDERED: VIBRAMYCIN100 MG PO (10:01)
[2024-03-03] MEDS ORDERED: PREDNISONE50 MG PO (10:01)
[2024-03-03] MEDS ORDERED: OMNICEF300 MG PO (13:42)
== END 2024-03-03 10:45 | disposition home or self-care (01) ==
LOC: ED 09:00
DX: L03.116 Cellulitis of left lower limb (principal); F41.9 Anxiety disorder, unspecified; F32.A Depression, unspecified; G43.909 Migraine, unspecified, not intractable, without status migrainosus; F17.200 Nicotine dependence, unspecified, uncomplicated; F12.90 Cannabis use, unspecified, uncomplicated; Z87.442 Personal history of urinary calculi